=== PATIENT | female | born 1940 | race Two or more races ===

== ENCOUNTER 2025-02-02 15:27 | Emergency (ER) | payer MEDICARE, MEDICAID ==
[~2025-02-02] VITALS: Ht 157.5 cm; Wt 65.0 kg
[2025-02-02 15:15] VITALS: PULSE 120; RESP 20; O2SAT 85
[~2025-02-02 15:27] MED LIST: CALCIUM GLUCONATE 100 MG/ML 10 ML IVP ONE; DEXTROSE 50%-WATER 25 GM/50 ML SYRINGE IVP ONE; DOPamine HCL/D5W 400 MG/250 ML IV BAG IV ONE; EPINEPHrine 1:10,000 [1 MG/10 ML] SYRINGE ONE; SODIUM BICARBONATE [ADULT] 8.4% 50 MEQ/50 ML SYRINGE IVP ONE
[2025-02-02] MEDS ORDERED: INSULIN REGULAR, HUMAN 100 UNITS/ML ONE (15:33)
[2025-02-02] MEDS ORDERED: INSULIN REGULAR, HUMAN 100 UNITS/ML IVP ONE (15:45)
[2025-02-02] MEDS ORDERED: DEXTROSE 50%-WATER 25 GM/50 ML SYRINGE IVP ONE (15:45)
[2025-02-02] MEDS ORDERED: NOREPINEPHRINE 8 MG/0.9 % NACL 250 ML IV ONE (15:53)
[2025-02-02 16:00] VITALS: PULSE 60; RESP 16; O2SAT 85
[2025-02-02] MEDS ORDERED: EPINEPHrine 5 MG in DEXTROSE 5%-WATER 245 ML IV PRN (16:00)
[2025-02-02] MEDS ORDERED: NOREPINEPHRINE 8 MG/0.9 % NACL 250 ML IV PRN (16:00)
[2025-02-02 16:02] VITALS: BP 101/72; PULSE 84; RESP 18; O2SAT 96
[2025-02-02 16:10] LABS: BASOPHILS % (AUTO) 0.3 % (0.0-2.0); EOSINOPHILS % (AUTO) 0.8 % (1.0-6.0); HEMATOCRIT 30.3 % (36-46); HEMOGLOBIN 8.6 g/dL (12.0-16.0); LYMPHOCYTES # (AUTO) 6.5 K/uL (1.0-4.8); LYMPHOCYTES % (AUTO) 61.1 % (22.0-44.0); MEAN CORPUSCULAR HEMOGLOBIN 29.7 pg (26.0-34.0); MEAN CORPUSCULAR HGB CONC 28.4 G/dL (31.0-37.0); MEAN CORPUSCULAR VOLUME 105 fL (80-100); MONOCYTES # (AUTO) 0.4 K/uL (0.1-1.0); MONOCYTES % (AUTO) 3.9 % (2.0-9.0); NEUTROPHILS # (AUTO) 3.6 K/uL (1.8-7.7); NEUTROPHILS % (AUTO) 33.9 % (40.0-70.0); RED CELL DISTRIBUTION WIDTH 15.8 % (11.5-14.5); WHITE BLOOD COUNT (AUTO) 10.6 K/uL (4.5-11.0)
[2025-02-02 16:22] LABS: ANION GAP 16 mmol/L (8-16); CALCIUM, TOTAL 9.1 mg/dL (8.8-10.5); CARBON DIOXIDE 18 mmol/L (22-29); CHLORIDE 105 mmol/L (98-107); CREATINE KINASE, TOTAL ONLY 254 U/L (26-192); CREATININE 1.65 mg/dL (0.60-1.30); GLOMERULAR FILTR. RATE CALC 27 mL/min (>60); POTASSIUM 5.6 mmol/L (3.5-5.1); SODIUM SERUM 139 mmol/L (136-145); UREA NITROGEN, BLOOD 34 mg/dL (7-18)
[2025-02-02 16:23] LABS: GLUCOSE,RANDOM 660 mg/dL (70-110); TROPONIN I-HIGH SENSITIVITY 1047 ng/L (<51)
[2025-02-02 16:24] LABS: B-TYPE NATRIURETIC PEPTIDE 115 pg/mL (0-100)
[2025-02-02 16:33] LABS: PLATELET COUNT (AUTO) 55 K/uL (150-450); RBC MORPHOLOGY COMMENT ABNORMAL RBC MORPH
[2025-02-02] MEDS ORDERED: DOPamine 400MG/D5W[STANDARD] 250 ML IV PRN (16:45)
== END 2025-02-02 19:25 ==
LOC: EMS 15:27 → EDBD 15:27 → EMS 19:25
DX: I46.9 Cardiac arrest, cause unspecified (principal); R42 Dizziness and giddiness; R06.02 Shortness of breath
CPT/HCPCS: 80048; 82550; 83880; 84484; 85025; 36415; 71045; 99285; 93005; 31500; J0610; J1265; J0171 ×2; J1815; J3490; J7060; 94002